=== PATIENT | female | born 1995 | race African-American/Black ===

== ENCOUNTER 2016-09-13 23:24 | Emergency (ER) | payer SELFPAY ==
[~2016-09-13] VITALS: Ht 165.1 cm; Wt 84.0 kg
[2016-09-14 02:15] VITALS: BP 118/73
== END 2016-09-14 03:15 | disposition home or self-care (01) ==
LOC: ER 23:56
DX: J06.9 Acute upper respiratory infection, unspecified (principal); F17.200 Nicotine dependence, unspecified, uncomplicated
CPT/HCPCS: 99283

== ENCOUNTER 2017-02-21 13:32 | Emergency (ER) | payer MEDICAID ==
[~2017-02-21] VITALS: Ht 162.6 cm; Wt 84.0 kg
[2017-02-21] MEDS ORDERED: BACITRACIN ZINC OINT UDPKT TOP ONE (19:30)
[2017-02-21] MEDS ORDERED: TETANUS, DIPHTHERIA, PERTUSSIS VAC/PF 0.5ML (>7YR OLD) IM ONE (19:30)
[2017-02-21 19:55] VITALS: BP 114/73
== END 2017-02-21 19:58 | disposition home or self-care (01) ==
LOC: ER 17:33
DX: S31.41XA Laceration without foreign body of vagina and vulva, initial encounter (principal); W26.8XXA Contact with other sharp object(s), not elsewhere classified, initial encounter; Y93.89 Activity, other specified; Y92.018 Other place in single-family (private) house as the place of occurrence of the external cause; F17.210 Nicotine dependence, cigarettes, uncomplicated
CPT/HCPCS: 90471; 90715; 99283; Z7610